=== PATIENT | female | born 1975 | race Caucasian/White ===

== ENCOUNTER 2019-07-05 08:44 | Emergency (ER) | payer BC, OTHER ==
[2019-07-05] MEDS ORDERED: Ketorolac 60 MG/2 ML SDV IM ONE (09:12)
--- NOTE | 2019-07-05 09:19 | EDM.PDOC ---
ED HPI GENERAL MEDICAL PROBLEM - General Chief Complaint: Lower Extremity Injury/Pain Stated Complaint: INJURED LT ANKLE Time Seen by Provider: 07/05/19 09:18 Source of Information: Reports: Patient - History of Present Illness INITIAL COMMENTS - FREE TEXT/NARRATIVE: HISTORY AND PHYSICAL: History of present illness: [Slipped on the ice getting into her car this morning for work she fell twisting her ankle unable to bear weight she has pain over the dorsum of her foot with slight bruise on the proximal foot on the dorsum, as well as medial malleoli or pain no head injury or loss of consciousness no fever nausea vomiting chills sweats pain 5 out of 10 unable to bear weight], pain clinically could correlate with occult fracture 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 Fox, further imaging is required he may order at that time Review of systems: As per history of present illness and below otherwise all systems reviewed and negative. Past medical history: As per history of present illness and as reviewed below otherwise noncontributory. Surgical history: As per history of present illness and as reviewed below otherwise noncontributory. Social history: No reported history of drug or alcohol abuse. Family history: As per history of present illness and as reviewed below otherwise noncontributory. Physical exam: HEENT: Atraumatic, normocephalic, pupils reactive, negative for conjunctival pallor or scleral icterus, mucous membranes moist, throat clear, neck supple, nontender, trachea midline. Lungs: Clear to auscultation, breath sounds equal bilaterally, chest nontender. Heart: S1S2, regular, negative for clicks, rubs, or JVD. Abdomen: Soft, nondistended, nontender. Negative for masses or hepatosplenomegaly. Negative for costovertebral tenderness. Pelvis: Stable nontender. Genitourinary: Deferred. Rectal: Deferred. Extremities: Atraumatic, negative for cords or calf pain. Neurovascular unremarkable. Foot as per HPI Neuro: Awake, alert, oriented. Cranial nerves II through XII unremarkable. Cerebellum unremarkable. Motor and sensory unremarkable throughout. Exam nonfocal. Diagnostics: [3 views Left ankle 3 views ] Therapeutics: [Rest ice ibuprofen Cam boot crutches nonweightbearing ] follow Up with podiatry Impression: [left Foot injury] Left ankle injury Definitive disposition and diagnosis as appropriate pending reevaluation and review of above. Treatments [employer]: Reports: Cold Therapy Left Ankle Pain Score (Numeric/FACES): 10 - Related Data Allergies Allergy/AdvReac Type Severity Reaction Status Date / Time codeine Allergy Nose Bleeds Verified 07/05/19 09:04 Home Meds: Home Meds Cetirizine [ZyrTEC] 10 mg PO DAILY 07/05/19 [History] Gabapentin [Neurontin] 300 mg PO BID 07/05/19 [History] Lisinopril/Hydrochlorothiazide [Lisinopril-HCTZ 10-12.5 MG] 1 tab PO BID [History] Past Medical History HEENT History: Reports: None Cardiovascular History: Reports: Hypertension Respiratory History: Reports: None Gastrointestinal History: Reports: None Genitourinary History: Reports: None [employer] History: Reports: None Musculoskeletal History: Reports: Muscular Dystrophy Neurological History: Reports: None Psychiatric History: Reports: None Endocrine/Metabolic History: Reports: None Hematologic History: Reports: None Immunologic History: Reports: None Oncologic (Cancer) History: Reports: None Dermatologic History: Reports: None - Infectious Disease History Infectious Disease History: Reports: None - Past Surgical History Head Surgeries/Procedures: Reports: None HEENT Surgical History: Reports: None Cardiovascular Surgical History: Reports: None Respiratory Surgical History: Reports: None GI Surgical History: Reports: None Female Surgical History: Reports: None Endocrine Surgical History: Reports: None Neurological Surgical History: Reports: None Musculoskeletal Surgical History: Reports: None Oncologic Surgical History: Reports: None Dermatological Surgical History: Reports: None Social & Family History - Family History Family Medical History: Noncontributory - Tobacco Use Smoking Status *Q: Never Smoker Second Hand Smoke Exposure: No - Caffeine Use Caffeine Use: Reports: Coffee - Recreational Drug Use Recreational Drug Use: No Review of Systems - Review of Systems Review Of Systems: See Below ED EXAM, GENERAL - Physical Exam Exam: See Below Course - Vital Signs Last Recorded V/S: Last Vital Signs Temp 98.5 F 07/05/19 08:53 Pulse 108 H 07/05/19 08:53 Resp BP 135/89 07/05/19 08:53 Pulse Ox 97 07/05/19 08:53 - Orders/Labs/Meds Meds: Medications Discontinued Medications Generic Name Dose Route Start Last Admin Trade Name Chasidy PRN Reason Stop Dose Admin Ketorolac Tromethamine 60 mg 07/05/19 09:12 07/05/19 09:24 Toradol IM 07/05/19 09:13 60 mg ONETIME ONE Administration Departure - Departure Time of Disposition: 11:17 Disposition: Home, Self-Care 01 Condition: Good Clinical Impression: Foot injury, Ankle injury - Discharge Information Referrals: Roger Clinton MD [Primary Care Provider] - Forms: ED Department Discharge Additional Instructions: cam Boot crutches nonweightbearing As discussed Wheel chair may be better for long-term application in your case Stay's ibuprofen Follow-up with Dr. fox, history clinic, appointment may be obtained by calling phone number below for appropriate follow-up Dr Everton Garvey, [place] [address] [place] [address] [id number] [place] [id number] The following information is given to patients seen in the emergency department who are being discharged to home. This information is to outline your options for follow-up care. We provide all patients seen in our emergency department with a follow-up referral. The need for follow-up, as well as the timing and circumstances, are variable depending upon the specifics of your emergency department visit. If you don't have a primary care physician on staff, we will provide you with a referral. We always advise you to contact your personal physician following an emergency department visit to inform them of the circumstance of the visit and for follow-up with them and/or the need for any referrals to a consulting specialist. The emergency department will also refer you to a specialist when appropriate. This referral assures that you have the opportunity for follow-up care with a specialist. All of these measure are taken in an effort to provide you with optimal care, which includes your follow-up. Under all circumstances we always encourage you to contact your private physician who remains a resource for coordinating your care. When calling for follow-up care, please make the office aware that this follow-up is from your recent emergency room visit. If for any reason you are refused follow-up, please contact the [facility] emergency department at and asked to speak to the emergency department charge nurse. Sepsis Event Note - Evaluation Sepsis Screening Result: No Definite Risk - Focused Exam Vital Signs: Vital Signs Temp Pulse BP Pulse Ox 07/05/19 08:53 98.5 F 108 H 135/89 97 Date Exam was Performed: 07/05/19 Time Exam was Performed: 11:14
--- NOTE | 2019-07-05 09:57 | CR ---
Left ankle: 3 views of the left ankle were obtained. Comparison: No previous study. Spur is noted at the attachment of the Achilles tendon to the calcaneus. Very minimal plantar spur is noted. Ankle mortise is symmetric. No acute fracture or other bony abnormality is appreciated. Impression: 1. Calcaneal spurs. 2. Left ankle study is otherwise unremarkable. Diagnostic code #2 This report was dictated in [place] Standard Time
--- NOTE | 2019-07-05 10:01 | CR ---
Left foot: 3 views of the left foot were obtained. Comparison: No previous foot exam. Small bony density which is well corticated noted off the IP joint of the fifth toe compatible with old injury. Small calcaneal spurs are again noted. No acute fracture or other bony abnormality is seen. Pressure in: 1. Findings believed to be incidental as described above. 2. Nothing acute is appreciated on left foot exam. Diagnostic code #2 This report was dictated in [place] Standard Time
[2019-07-05 14:36] VITALS: BP 133/77; PULSE 95
== END 2019-07-05 11:31 | disposition home or self-care (01) ==
LOC: MW.ED 08:44
DX: S90.32XA Contusion of left foot, initial encounter (principal); S90.02XA Contusion of left ankle, initial encounter; I10 Essential (primary) hypertension; Z88.5 Allergy status to narcotic agent; Z79.899 Other long term (current) drug therapy; W00.0XXA Fall on same level due to ice and snow, initial encounter; X50.1XXA Overexertion from prolonged static or awkward postures, initial encounter
CPT/HCPCS: 73610; 73630; 96372; 99283; J1885; 99284

== ENCOUNTER 2023-01-14 09:52 | Emergency (ER) | payer BC ==
[2023-01-14] MEDS ORDERED: Albuterol/Ipratropium 3.0-0.5 MG/3 ML Neb Soln NEB ONE (10:32)
[2023-01-14] MEDS ORDERED: Sodium Chloride 0.9% 1,000 ML IV STA (10:54)
[2023-01-14 10:57] LABS: BASOPHILS PERCENT AUTO 0.3 % (0.0-1.5); EOSINOPHILS ABSOLUTE AUTO 0.1 K/uL (0.0-0.7); EOSINOPHILS PERCENT AUTO 1.2 % (0.0-7.0); HEMATOCRIT 39.3 % (36.0-46.0); HEMOGLOBIN 13.2 g/dL (12.0-16.0); LYMPHOCYTES ABSOLUTE AUTO 0.9 K/uL (0.6-2.4); LYMPHOCYTES PERCENT AUTO 15.7 % (16.0-40.0); MEAN CORPUSCULAR HEMOGLOBIN 29.1 pg (27.0-32.0); MEAN CORPUSCULAR HGB CONC 33.6 g/dL (31.0-37.0); MEAN CORPUSCULAR VOLUME 86.6 fL (80.0-98.0); MONOCYTES ABSOLUTE AUTO 0.4 K/uL (0.0-0.8); MONOCYTES PERCENT AUTO 7.1 % (0.0-15.0); NEUTROPHILS ABSOLUTE AUTO 4.4 K/uL (1.4-5.7); NEUTROPHILS PERCENT AUTO 75.7 % (48.0-80.0); NRBC ABSOLUTE 0 K/uL; PLATELET COUNT,PLT 198 K/uL (150-400); RED BLOOD CELL COUNT 4.54 M/uL (4.30-5.90); WHITE BLOOD CELL COUNT,WBC 5.75 K/uL (4.0-11.0)
[2023-01-14 11:36] LABS: CORONAVIRUS COVID-19 NAA NEGATIVE (NEGATIVE); INFLUENZA A NAA NEGATIVE (NEGATIVE); INFLUENZA B NAA NEGATIVE (NEGATIVE)
[2023-01-14 11:39] LABS: A/G RATIO 1.1 (0.9-1.6); ALANINE AMINOTRANSFERASE,ALT 24 IU/L (14-63); ALBUMIN 3.8 g/dL (3.4-5.0); ALKALINE PHOSPHATASE 79 U/L (46-116); ASPARTATE AMNIOTRANSFERASE,AST 16 IU/L (15-37); BILIRUBIN TOTAL 0.5 mg/dL (0.2-1.0); BLOOD UREA NITROGEN,BUN 9 mg/dL (7.0-18.0); CALCIUM 9.1 mg/dL (8.5-10.1); CHLORIDE,CL 100 mmol/L (98-107); CREATININE 0.8 mg/dL (0.6-1.0); EST CRCL DRUG DOSING (CG) 79.63 mL/min; GLUCOSE RANDOM 132 mg/dL (74-106); POTASSIUM,K 3.6 mmol/L (3.5-5.1); PROTEIN TOTAL,TP 7.4 g/dL (6.4-8.2); SODIUM,NA 136 mmol/L (136-145)
[2023-01-14 11:44] LABS: ESTIMATED GFR 90 mL/min (>60)
[2023-01-14] MEDS ORDERED: methylPREDNISolone Sodium Succinate 125 MG/2 ML SDV IVPUSH ONE (12:18)
[2023-01-14 12:23] VITALS: BP 119/83
[2023-01-14 12:48] VITALS: PULSE 99
== END 2023-01-14 13:04 | disposition home or self-care (01) ==
LOC: MW.ED 09:52
DX: R06.2 Wheezing (principal); I10 Essential (primary) hypertension; Z88.5 Allergy status to narcotic agent; Z79.899 Other long term (current) drug therapy; Z20.822 Contact with and (suspected) exposure to COVID-19
CPT/HCPCS: 0240U; 36415; 71045; 80053; 84484; 84703; 85025; 93005; 96361; 96374; 99284; J2930; J7030; 93010; 99283; J7620-GY

== ENCOUNTER 2025-01-13 08:35 | Emergency (ER) | payer BC ==
[2025-01-13] MEDS ORDERED: Sodium Chloride 0.9% 10 ML Syringe FLUSH PRN (09:04)
[2025-01-13] MEDS ORDERED: Sodium Chloride 0.9% 2.5 ML Syringe FLUSH PRN (09:04)
[2025-01-13 09:17] LABS: BASOPHILS ABSOLUTE AUTO 0.02 K/uL (0.00-0.20); BASOPHILS PERCENT AUTO 0.2 % (0.0-1.0); EOSINOPHILS ABSOLUTE AUTO 0.02 K/uL (0.00-0.45); EOSINOPHILS PERCENT AUTO 0.2 % (0.0-6.0); IMMATURE GRAN ABSOLUTE AUTO 0.03 K/uL (0.00-0.05); IMMATURE GRAN PERCENT AUTO 0.4 % (0.0-0.4); LYMPHOCYTES ABSOLUTE AUTO 0.85 K/uL (1.00-4.80); LYMPHOCYTES PERCENT AUTO 10.2 % (24.0-44.0); MEAN PLATELET VOLUME 9.7 fL (9.4-12.3); MONOCYTES ABSOLUTE AUTO 0.48 K/uL (0.00-0.80); MONOCYTES PERCENT AUTO 5.8 % (0.0-8.0); NEUTROPHILS ABSOLUTE AUTO 6.90 K/uL (1.80-7.70); NEUTROPHILS PERCENT AUTO 83.2 % (41.0-71.0); NRBC ABSOLUTE 0.00 K/uL (0.00-0.02); NRBC PERCENT 0.0 /100WBC (0.0-0.2); PLATELET COUNT,PLT 259 K/uL (150-400); RED BLOOD CELL COUNT 4.68 M/uL (4.10-5.30); WHITE BLOOD CELL COUNT,WBC 8.30 K/uL (3.9-11.3)
[2025-01-13 09:33] LABS: INR 0.95 (0.86-1.11)
[2025-01-13 09:42] LABS: A/G RATIO 1.4 (0.9-1.6); ALANINE AMINOTRANSFERASE,ALT 42 IU/L (14-63); ASPARTATE AMNIOTRANSFERASE,AST 16 IU/L (15-37); BILIRUBIN TOTAL 0.8 mg/dL (0.2-1.0); BLOOD UREA NITROGEN,BUN 15 mg/dL (7.0-18.0); CARBON DIOXIDE,CO2 24.9 mmol/L (21.0-32.0); CHLORIDE,CL 103 mmol/L (98-107); CREATINE KINASE,CK 58 U/L (26-308); CREATININE 1.0 mg/dL (0.6-1.0); GLUCOSE RANDOM 143 mg/dL (74-106); POTASSIUM,K 3.3 mmol/L (3.5-5.1); PROTEIN TOTAL,TP 7.5 g/dL (6.4-8.2); SODIUM,NA 139 mmol/L (136-145)
[2025-01-13 09:44] LABS: ESTIMATED GFR 69 mL/min (>60); ETHANOL BLOOD MEDICAL < 3.0 mg/dL
[2025-01-13] MEDS: Ondansetron 4 MG/2 ML SDV IVPUSH ONE (10:36)
[2025-01-13] MEDS: Lactated Ringers 1,000 ML IV ONE (10:36)
[2025-01-13 14:00] VITALS: BP 125/73; PULSE 84
== END 2025-01-13 13:59 | disposition home or self-care (01) ==
LOC: MW.ED 08:35
DX: M54.50 Low back pain, unspecified (principal); R55 Syncope and collapse; R19.7 Diarrhea, unspecified; R11.2 Nausea with vomiting, unspecified; E86.0 Dehydration; I10 Essential (primary) hypertension; Z75.3 Unavailability and inaccessibility of health-care facilities; Z88.8 Allergy status to other drugs, medicaments and biological substances; Z79.899 Other long term (current) drug therapy
CPT/HCPCS: 36415; 71045; 72100; 80053; 80307; 82550; 82947; 83690; 84484; 85025; 85610; 96361; 96374; 99284; J2405; J7030; J7120; 99283

== ENCOUNTER 2025-04-09 07:33 | Observation (INO) | payer BC ==
[2025-04-09] MEDS: Ondansetron 4 MG/2 ML SDV IVPUSH ONE (07:54)
[2025-04-09 08:04] LABS: BASOPHILS ABSOLUTE AUTO 0.03 K/uL (0.00-0.20); BASOPHILS PERCENT AUTO 0.4 % (0.0-1.0); EOSINOPHILS ABSOLUTE AUTO 0.06 K/uL (0.00-0.45); EOSINOPHILS PERCENT AUTO 0.8 % (0.0-6.0); IMMATURE GRAN ABSOLUTE AUTO 0.04 K/uL (0.00-0.05); IMMATURE GRAN PERCENT AUTO 0.5 % (0.0-0.4); LYMPHOCYTES ABSOLUTE AUTO 1.46 K/uL (1.00-4.80); LYMPHOCYTES PERCENT AUTO 19.5 % (24.0-44.0); MEAN PLATELET VOLUME 9.1 fL (9.4-12.3); MONOCYTES ABSOLUTE AUTO 0.72 K/uL (0.00-0.80); MONOCYTES PERCENT AUTO 9.6 % (0.0-8.0); NEUTROPHILS ABSOLUTE AUTO 5.19 K/uL (1.80-7.70); NEUTROPHILS PERCENT AUTO 69.2 % (41.0-71.0); NRBC ABSOLUTE 0.00 K/uL (0.00-0.02); NRBC PERCENT 0.0 /100WBC (0.0-0.2); PLATELET COUNT,PLT 311 K/uL (150-400); RED BLOOD CELL COUNT 5.39 M/uL (4.10-5.30); WHITE BLOOD CELL COUNT,WBC 7.50 K/uL (3.9-11.3)
[2025-04-09 08:31] LABS: A/G RATIO 1.5 (0.9-1.6); ALANINE AMINOTRANSFERASE,ALT 18 IU/L (14-63); ASPARTATE AMNIOTRANSFERASE,AST 11 IU/L (15-37); BILIRUBIN TOTAL 1.7 mg/dL (0.2-1.0); BLOOD UREA NITROGEN,BUN 19 mg/dL (7.0-18.0); CARBON DIOXIDE,CO2 23.8 mmol/L (21.0-32.0); CHLORIDE,CL 84 mmol/L (98-107); CREATININE 0.9 mg/dL (0.6-1.0); EST CRCL DRUG DOSING (CG) 69.23 mL/min; GLUCOSE RANDOM 112 mg/dL (74-106); POTASSIUM,K 3.1 mmol/L (3.5-5.1); PROTEIN TOTAL,TP 7.9 g/dL (6.4-8.2); SODIUM,NA 123 mmol/L (136-145)
[2025-04-09 08:32] LABS: ESTIMATED GFR 77 mL/min (>60); HCG QUANTITATIVE < 1.0 mIU/mL
[2025-04-09] MEDS: Iopamidol 755 Mg/ML 100 ML Bottle IVPUSH ONE (08:43)
[2025-04-09 10:34] LABS: BLOOD UREA NITROGEN,BUN 16.0 mg/dL (7.0-18.0); CARBON DIOXIDE,CO2 28.8 mmol/L (21.0-32.0); CHLORIDE,CL 90.0 mmol/L (98-107); CREATININE 0.8 mg/dL (0.6-1.0); EST CRCL DRUG DOSING (CG) 77.88 mL/min; ESTIMATED GFR 89.0 mL/min (>60); GLUCOSE RANDOM 97.0 mg/dL (74-106); POTASSIUM,K 3.7 mmol/L (3.5-5.1); SODIUM,NA 126.0 mmol/L (136-145)
[2025-04-09 10:59] LABS: GLUCOSE,URINE NEGATIVE (NEGATIVE); OCCULT BLOOD,URINE TRACE-INTACT (NEGATIVE)
[2025-04-09 11:07] LABS: APPEARANCE,URINE CLEAR
[2025-04-09 11:08] LABS: EPITHELIAL CELLS,URINE RARE (NONE-FEW)
[2025-04-09] MEDS ORDERED: Ondansetron 4 MG/2 ML SDV IVPUSH PRN (11:21)
[2025-04-09] MEDS ORDERED: Sodium Chloride 0.9% 10 ML Syringe FLUSH PRN (11:21)
[2025-04-09] MEDS ORDERED: Sodium Chloride 0.9% 2.5 ML Syringe FLUSH PRN (11:21)
[2025-04-09] MEDS ORDERED: Ondansetron 4 MG Tab.DIS PO PRN (11:21)
[2025-04-09 15:04] LABS: BLOOD UREA NITROGEN,BUN 13.0 mg/dL (7.0-18.0); CARBON DIOXIDE,CO2 30.5 mmol/L (21.0-32.0); CHLORIDE,CL 94.0 mmol/L (98-107); CREATININE 0.8 mg/dL (0.6-1.0); EST CRCL DRUG DOSING (CG) 77.88 mL/min; GLUCOSE RANDOM 94.0 mg/dL (74-106); POTASSIUM,K 3.3 mmol/L (3.5-5.1); SODIUM,NA 131.0 mmol/L (136-145)
[2025-04-09 15:10] LABS: ESTIMATED GFR 89.0 mL/min (>60)
[2025-04-09 20:46] LABS: BLOOD UREA NITROGEN,BUN 12.0 mg/dL (7.0-18.0); CARBON DIOXIDE,CO2 28.5 mmol/L (21.0-32.0); CHLORIDE,CL 98.0 mmol/L (98-107); CREATININE 0.8 mg/dL (0.6-1.0); EST CRCL DRUG DOSING (CG) 77.88 mL/min; GLUCOSE RANDOM 102.0 mg/dL (74-106); POTASSIUM,K 3.5 mmol/L (3.5-5.1); SODIUM,NA 134.0 mmol/L (136-145)
[2025-04-09 20:47] LABS: ESTIMATED GFR 89.0 mL/min (>60)
[2025-04-10 01:41] LABS: BLOOD UREA NITROGEN,BUN 12.0 mg/dL (7.0-18.0); CARBON DIOXIDE,CO2 28.9 mmol/L (21.0-32.0); CHLORIDE,CL 97.0 mmol/L (98-107); CREATININE 0.8 mg/dL (0.6-1.0); EST CRCL DRUG DOSING (CG) 77.88 mL/min; GLUCOSE RANDOM 105.0 mg/dL (74-106); POTASSIUM,K 3.7 mmol/L (3.5-5.1); SODIUM,NA 134.0 mmol/L (136-145)
[2025-04-10 01:50] LABS: ESTIMATED GFR 89.0 mL/min (>60)
[2025-04-10 05:34] LABS: BASOPHILS ABSOLUTE AUTO 0.02 K/uL (0.00-0.20); BASOPHILS PERCENT AUTO 0.3 % (0.0-1.0); EOSINOPHILS ABSOLUTE AUTO 0.05 K/uL (0.00-0.45); EOSINOPHILS PERCENT AUTO 0.9 % (0.0-6.0); IMMATURE GRAN ABSOLUTE AUTO 0.02 K/uL (0.00-0.05); IMMATURE GRAN PERCENT AUTO 0.3 % (0.0-0.4); LYMPHOCYTES ABSOLUTE AUTO 1.65 K/uL (1.00-4.80); LYMPHOCYTES PERCENT AUTO 28.8 % (24.0-44.0); MEAN PLATELET VOLUME 9.3 fL (9.4-12.3); MONOCYTES ABSOLUTE AUTO 0.64 K/uL (0.00-0.80); MONOCYTES PERCENT AUTO 11.2 % (0.0-8.0); NEUTROPHILS ABSOLUTE AUTO 3.34 K/uL (1.80-7.70); NEUTROPHILS PERCENT AUTO 58.5 % (41.0-71.0); NRBC ABSOLUTE 0.00 K/uL (0.00-0.02); NRBC PERCENT 0.0 /100WBC (0.0-0.2); PLATELET COUNT,PLT 266 K/uL (150-400); RED BLOOD CELL COUNT 4.42 M/uL (4.10-5.30); WHITE BLOOD CELL COUNT,WBC 5.72 K/uL (3.9-11.3)
[2025-04-10 06:11] LABS: A/G RATIO 1.3 (0.9-1.6); ALANINE AMINOTRANSFERASE,ALT 10.0 IU/L (14-63); ASPARTATE AMNIOTRANSFERASE,AST 11.0 IU/L (15-37); BILIRUBIN TOTAL 0.9 mg/dL (0.2-1.0); BLOOD UREA NITROGEN,BUN 10.0 mg/dL (7.0-18.0); CARBON DIOXIDE,CO2 27.5 mmol/L (21.0-32.0); CHLORIDE,CL 98.0 mmol/L (98-107); CREATININE 0.9 mg/dL (0.6-1.0); EST CRCL DRUG DOSING (CG) 69.23 mL/min; GLUCOSE RANDOM 100.0 mg/dL (74-106); POTASSIUM,K 3.7 mmol/L (3.5-5.1); PROTEIN TOTAL,TP 6.3 g/dL (6.4-8.2); SODIUM,NA 133.0 mmol/L (136-145)
[2025-04-10 06:12] LABS: ESTIMATED GFR 77.0 mL/min (>60)
[2025-04-10 16:43] VITALS: BP 134/78; PULSE 94
== END 2025-04-10 12:30 | disposition home or self-care (01) ==
LOC: MW.ED 07:33 → MW.MS 10:35
PROVIDERS: ADMIT Family Medicine; ATTEND Family Medicine
DX: E87.1 Hypo-osmolality and hyponatremia (principal); I10 Essential (primary) hypertension; J84.10 Pulmonary fibrosis, unspecified; Z88.5 Allergy status to narcotic agent; Z79.899 Other long term (current) drug therapy
CPT/HCPCS: 36415; 74177; 80048; 80053; 81001; 83690; 83735; 84702; 85025; A9270; J2405; J3480; J7030; Q9967; 96361; 96365; 96366; 96375; 96376; 99284; 99285-25; G0378